=== PATIENT | male | born 1955 | race Caucasian/White ===

== ENCOUNTER → 2018-06-12 | Outpatient (CLI) | payer OTHER ==
[~2018-06-12] VITALS: Ht 170.2 cm; Wt 71.2 kg
[~2018-06-12] MED LIST: CELEBREX 200 M200 MG PO; GLUCOSAMINE HC500 MG PO; IBUPROFEN 400400 M1 PO; MOBIC7.5 MG PO; TYLENOL ARTHRI650 MG PO; UNICOMPLEX M TA1 TA1 PO
--- NOTE | ~2018-06-12 | HPC ---
[facility] [address] [place] [address] PAIN MANAGEMENT CONSULTATION Name: PRIYANKA BHANDARI Room #: REG Mariam Leonie.#: [id number] Admission: 06/12/18 Attend Phys: Juan Mott MD Discharge: Date of : 57 Report #: [id number] THIS REPORT FOR: //name// CC: Nitish Mott DATE OF SERVICE: 06/12/2018 CHIEF COMPLAINT: Cervicalgia with radiation into the occiput. HISTORY OF PRESENT ILLNESS: I saw the patient today in the presence of his , Maria Eugenia, for a 35-minute consultation. He has longstanding neck pain that has been present causing daily occipital headaches for several years. First began noticing headaches around 2013. They have been persistent pretty much since as a dull aching pain that begins in both sides of his neck and radiates up through the occiput. At times are very severe. Scoring intensity is a 5-6 today. Average daily pain is a 6-8/10, worst pain is an 8/10. Pain is constant, aching and pounding. He has tried a number of conservative treatments including physical therapy, chiropractic and acupuncture. He had Botox injections with no success. He saw Dr. Shu Salgado and received 2 cervical epidural injections with only mild temporary relief. He then underwent 2 diagnostic medial branch nerve blocks with intent to proceed on to radiofrequency ablation, but the relief was not substantial and he elected not to proceed with radiofrequency. 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 He is also doing some cardiac workup and some Pilates hoping to remain fit and healthy, but the pain has not changed much. MEDICATIONS: None. ALLERGIES: None. PAST MEDICAL HISTORY: Hemorrhoidectomy in December of 2006. Otherwise, no other surgeries and he has no other significant long-term medical problems. 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 He and Maria Eugenia had one son who lives in [place]. Their son is . No grandchildren. "Maria Eugenia was 2 years behind me in high school at [employer], so we have a connection along those lines." REVIEW OF SYSTEMS: Essentially negative. PHYSICAL EXAMINATION: [facility] [address] [place] [address] PAIN MANAGEMENT CONSULTATION Name: PRIYANKA BHANDARI Room #: REG CASANDRAMariam Maldonado#: [id number] Admission: 06/12/18 Attend Phys: Juan Mott MD Discharge: Date of : 57 Report #: [id number] GENERAL: A very fit appearing 62-year-old. VITAL SIGNS: He is 5 feet 7 inches, 157 pounds and his BMI is 24.6. His blood pressure 131/79, heart rate is 57, respirations 16 and O2 sat 98%. MUSCULOSKELETAL: His movements from sitting to standing and his gait are all normal. Examination of the spine reveals normal range of motion in all planes. His most painful discomfort is in lateral tilt, bilateral movements and side to side tend to aggravate the mid cervical facet joints and cause pain. There is minimal tenderness along the posterior cervical spine. There is no muscle spasm appreciated. Examination of the upper extremities and lower extremities is normal. He has normal strength. Normal sensation and deep tendon reflexes are 1-2+ at biceps, triceps, brachioradialis and in the lower extremities at knees and ankles. He does have some difficulty, fully extending his right arm with some restrictions at the elbow, which have gradually occurred over a number of years and he believes is related to bone spurs from weightlifting aggressively. RADIOLOGICAL DATA: X-rays reviewed include reports of the cervical spine, which show a degenerative disk at C5-C6 with some attendant facet arthropathy in that location. This contributes to mild stenosis of the central canal without significant flattening or deformity of the cervical spinal cord. There was an interval review between August of 2014 and this study, which was done on January of 2016 and there were no significant changes. IMPRESSION: Cervicalgia with referred pain, likely from facet arthropathy with some myofascial components as the pain progresses through the day. RECOMMENDATIONS: He has not had an aggressive nonsteroidal anti-inflammatory trial. Use of a daily nonsteroidal anti-inflammatory drug is of course a concern for GI, renal and cardiac side effects. Many patients, however, find this to be helpful and the medication can be used on a p.r.n. basis rather than as a daily regimen. I have recommended that he tried 2 weeks of the NSAID trial to see if he can quiet the pain and then perhaps use it more sparingly p.r.n. I have suggested both meloxicam and Celebrex and given him a prescription for both so that he can try 2 different medications. I reviewed the talks LINARES-2 inhibiting anti-inflammatories and we discussed the pros and cons of these medications. We briefly discussed low-dose opioid therapy, which can be used as a rescue drug in the evening. Years of experience have shown that many patients find this to be a suitable alternative, is something more aggressive along the lines of surgery. It is our practice that opioids do play a role in chronic intractable pain and can be used safely on selected patients. I would first see if he responds to an anti-inflammatory before discussing this further, but I did open that discussion today. He has seen Dr. Efraín Johnson who did offer her an anterior cervical diskectomy and fusion at C5-C6 and we talked about that procedure and why it [facility] [address] [place] [address] PAIN MANAGEMENT CONSULTATION Name: PRIYANKA BHANDARI [facility] [id number] Admission: 06/12/18 Attend Phys: Juan Mott MD Discharge: Date of : 57 Report #: [id number] provides pain relief for many patients. Questions were answered about the procedure and he is not excited about having a neck surgery at this point in time. He has already been treated aggressively from an interventional pain standpoint with multiple injections. I think the next step is perhaps to pursue a medication management. Followup visit is scheduled in 1 month. By: [id number] Juan Mott MD /nt
[2018-06-12 12:46] VITALS: BP 131/79
== END ==
LOC: PAIN 07:00
DX: M54.2 Cervicalgia (principal); R51 Headache